=== PATIENT | female | born 1975 | race Caucasian/White ===

== ENCOUNTER 2016-10-11 08:54 | Emergency (ER) | payer OTHER ==
[2016-10-11 09:28] VITALS: BP 130/73; PULSE 96; RESP 16; TEMP 98.9; O2SAT 95
--- NOTE | 2016-10-11 09:54 | UCPHY ---
H & P Time Seen by Provider: 10/11/16 09:48 Patient Type: New HPI/ROS: This patient has complaint of a dry hacky cough started 4 days prior to arrival. She has associated myalgias, fatigue and high fevers at times. She has partial relief from Tylenol and notes no other exacerbating or alleviating factors. She does not feel her symptoms are improving. ROS: Constitutional: No other complaints, HEENT: sore throat of moderate intensity, but no ear pain, cardiopulmonary: No chest pain no respiratory distress no lightheadedness, integumentary: No skin rash 7 point ROS is otherwise negative Past Medical/Surgical History: Otherwise healthy except for hypothyroidism Smoking Status: Never smoked Physical Exam: Physical Exam Vital signs are normal except for an O2 sat of 95% room air General: No acute distress HEENT: Nose: Clear discharge oropharynx: Minimal erythema with no exudates. Ears: Clear bilaterally Eyes: Pupils equal and react to light. Extraocular motions are intact. Neck: Supple with no meningismus Lungs: Clear to auscultation bilaterally with the exception of mild rhonchi and faint expiratory wheeze. No rales. No respiratory distress. Cardiac: Regular rate and rhythm with no murmur gallop or rub Skin: No rash or pallor. Neuro: Alert and oriented x3 with no sensorimotor deficits. Initial differential diagnosis: Influenza, viral pharyngitis, strep pharyngitis Constitutional: Initial Vital Signs Temperature (C) 37.2 C 10/11/16 09:22 Heart Rate 96 10/11/16 09:22 Respiratory Rate 16 10/11/16 09:22 Blood Pressure 130/73 H 10/11/16 09:22 O2 Sat (%) 95 10/11/16 09:22 O2 Delivery Mode Room Air Allergies/Adverse Reactions: cat dander Allergy (Severe, Verified 10/11/16 09:23) Other-Enter Comments Penicillins Allergy (Severe, Verified 10/11/16 09:23) Other-Enter Comments Home Medications: Medication Instructions Recorded Albuterol Hfa Anes Only [Proair 2 puffs IH Q4 PRN #1 mdi 10/11/16 Hfa Icu (*)] IRON 10/11/16 Levothyroxine 10/11/16 MDM/Departure - MDM ED Course/Re-evaluation: Rapid influenza was positive for flu A. I counseled patient regarding this. Despite the influenza patient appears nontoxic. - Depart Disposition: Home, Routine, Self-Care Clinical Impression: Influenza A Condition: Good Instructions: Influenza (ED) Additional Instructions: Diagnosis: Influenza A Plan: Humidifier Ibuprofen-600 mg per 6 hours as needed for fevers Tylenol in addition if needed Albuterol inhaler if needed for cough, wheeze or shortness of breath No work until her fever has resolved for 24 hours or more Go to the emergency department for any significant worsening despite the treatment plan Stand Alone Forms: Work Excuse Prescriptions: Albuterol Hfa Anes Only [Proair Hfa Icu (*)] 2 puffs IH Q4 PRN #1 mdi PRN Reason: Wheezing Referrals: BLANCA NAILS [Primary Care Provider] - As per Instructions - PQRS PQRS Measurement: NA
== END 2016-10-11 09:57 | disposition home or self-care (01) ==
LOC: CED 08:54
DX: J10.1 Influenza due to other identified influenza virus with other respiratory manifestations (principal)
CPT/HCPCS: 87400-PO; 99203-PO; G0463-PO